=== PATIENT | female | born 1970 | race Asian ===

== ENCOUNTER 2021-02-04 14:58 | Emergency (ER) | payer BC, MEDICAID ==
[~2021-02-04] VITALS: Ht 157.5 cm; Wt 74.8 kg
[~2021-02-04 14:58] MED LIST: HYDR12.55 PO; LOSA50TA3 PO
--- NOTE | 2021-02-04 15:22 | NUR ---
PT AMBULATORY TO ER BED 01 C/O LIGHTHEADEDNESS, NAUSEA THAT STARTED 4 HOURS AGO. PT ALSO C/O ABDOMINAL CRAMPING AND IS CONSTIPATED FOR A WHILE NOW. DENIES CHEST PAIN. STABLE VITALS. AWAITING MD HENLEY.
--- NOTE | 2021-02-04 15:33 | NUR ---
DR FREY AT BEDSIDE FOR EVAL.
--- NOTE | 2021-02-04 15:40 | NUR ---
IV LINE STARTED BLOOD DRAWN AND SENT TO LAB.
[2021-02-04] MEDS ORDERED: ONDANSETRON HCL/PF 4 MG/2 ML VIAL ONE (15:44)
[2021-02-04 15:45] LABS: BASOPHILS # (AUTO) 0.1 /CMM (0.0-0.2); EOSINOPHILS % (AUTO) 4.8 % (0.0-6.0); HEMATOCRIT 39 % (33-45); HEMOGLOBIN 12.9 g/dL (11.5-14.8); LYMPHOCYTES # (AUTO) 1.8 /CMM (0.8-4.8); LYMPHOCYTES % (AUTO) 16.3 % (20.0-44.0); MEAN CORPUSCULAR HGB CONC 33 g/dl (31.0-36.0); MEAN CORPUSCULAR VOLUME 80 fL (82-100); MONOCYTES # (AUTO) 0.8 /CMM (0.1-1.30); MONOCYTES % (AUTO) 7.7 % (2.0-12.0); NEUTROPHILS # (AUTO) 7.7 /CMM (1.8-8.9); NEUTROPHILS % (AUTO) 70.2 % (43.0-81.0); PLATELET COUNT (AUTO) 308 /CMM (150-450); RED BLOOD CELL COUNT(AUTO) 4.89 MIL/uL (4.0-5.2); WHITE BLOOD COUNT (AUTO) 10.9 K/uL (4.3-11.0)
[2021-02-04 15:57] LABS: BILIRUBIN,URINE Negative (NEGATIVE); COLOR,URINE YELLOW (YELLOW); LEUKOCYTE ESTERASE ,URINE Negative (NEGATIVE); NITRITE, URINE Negative (NEGATIVE); PROTEIN,URINE Negative (NEGATIVE); UGLUCOSE Negative (NEGATIVE); UROBILINOGEN,URINE 0.2 EU/dL (0.2)
[2021-02-04] MEDS ORDERED: ONDANSETRON HCL/PF 4 MG/2 ML VIAL IV ONE (16:00)
[2021-02-04] MEDS ORDERED: IV NS 0.9% 1,000 ML BAG IV ONE (16:00)
[2021-02-04 16:16] LABS: ALANINE AMINOTRANSFERASE 25 U/L (12-78); ALBUMIN 4.1 g/dL (3.4-5.0); ALKALINE PHOSPHATASE 57 U/L (46-116); ASPARTATE AMINOTRANSFERASE 14 U/L (15-37); BILIRUBIN,DIRECT 0.1 mg/dL (0.0-0.2); BILIRUBIN,TOTAL 0.2 mg/dL (0.2-1.0); CARBON DIOXIDE 28 mmol/L (21-32); CHLORIDE 99 mmol/L (98-107); CREATININE 0.9 mg/dL (0.6-1.3); GLUCOSE 108 mg/dL (74-106); POTASSIUM 4.3 mmol/L (3.5-5.1); SODIUM SERUM 136 mmol/L (136-145); TOTAL PROTEIN, SERUM 8.1 g/dL (6.4-8.2); UREA NITROGEN, BLOOD 9 mg/dL (7-18)
[2021-02-04 17:10] LABS: CALCIUM, SERUM 10.3 mg/dL (8.5-10.1)
--- NOTE | 2021-02-04 17:13 | NUR ---
Patient discharged to home in stable condition. Written and verbal after care instructions given. Patient verbalizes understanding of instruction.IV removed. Catheter intact and site benign. Pressure and 4x4 applied to site. No bleeding noted.
[2021-02-04 17:14] VITALS: BP 144/80
== END 2021-02-04 17:14 | disposition home or self-care (01) ==
LOC: ER 15:05
DX: R42 Dizziness and giddiness (principal); K59.00 Constipation, unspecified; I10 Essential (primary) hypertension; K21.9 Gastro-esophageal reflux disease without esophagitis; F32.9 Major depressive disorder, single episode, unspecified; D64.9 Anemia, unspecified; Z90.89 Acquired absence of other organs; Z88.8 Allergy status to other drugs, medicaments and biological substances; Z79.899 Other long term (current) drug therapy
CPT/HCPCS: 36415; 80048; 80076; 81003; 84484; 84703; 85025; 93005; 96361; 96374; 99284; J2405; J7030

== ENCOUNTER → 2024-12-15 | Emergency (ER) | payer BC, MEDICAID ==
[~2024-12-15] VITALS: Ht 157.5 cm; Wt 75.7 kg
[2024-12-15 17:57] VITALS: BP 159/97; TEMP 98.2; O2SAT 97
== END | disposition left against medical advice (07) ==
LOC: ER 17:50
DX: R51.9 Headache, unspecified (principal); R42 Dizziness and giddiness; R11.0 Nausea; Z53.21 Procedure and treatment not carried out due to patient leaving prior to being seen by health care provider

== ENCOUNTER 2025-06-19 08:12 | Emergency (ER) | payer BC, MEDICAID ==
[~2025-06-19] VITALS: Ht 157.5 cm; Wt 72.6 kg
[2025-06-19 09:25] LABS: PLATELET COUNT (AUTO) 266 K/uL (150-450); RED BLOOD CELL COUNT(AUTO) 5.10 MIL/uL (4.0-5.2); RED CELL DISTRIBUTION WIDTH 14.8 % (11.5-15.0); WHITE BLOOD COUNT (AUTO) 5.9 K/uL (4.3-11.0)
[2025-06-19 09:36] LABS: CALCIUM, SERUM 9.2 mg/dL (8.5-10.1); CREATININE 0.7 mg/dL (0.6-1.3); SODIUM SERUM 140.0 mmol/L (136-145); UREA NITROGEN, BLOOD 12.0 mg/dL (7-18)
[2025-06-19 09:39] LABS: INR 0.95 (0.91-1.10)
[2025-06-19 09:42] LABS: ASPARTATE AMINOTRANSFERASE 15.0 U/L (15-37); TOTAL PROTEIN, SERUM 7.7 g/dL (6.4-8.2)
[2025-06-19] MEDS ORDERED: ONDANSETRON HCL/PF 4 MG/2 ML VIAL ONE (09:49)
[2025-06-19] MEDS ORDERED: MECLIZINE HCL 25 MG TABLET ONE (09:50)
[2025-06-19] MEDS: MECLIZINE HCL 25 MG TABLET PO ONE (09:52)
[2025-06-19] MEDS: ONDANSETRON HCL/PF 4 MG/2 ML VIAL IVP ONE (09:53)
[2025-06-19] MEDS ORDERED: IOHEXOL-350 100 ML VIAL IV ONE (10:46)
[2025-06-19] MEDS ORDERED: IV NS 0.9% 250 ML IV ONE (10:46)
[2025-06-19] MEDS ORDERED: CT SWABBABLE VALVE TRANS SET 1 EA INFUS.SET MC ONE (10:46)
[2025-06-19 10:56] LABS: APPEARANCE,URINE CLOUDY (CLEAR); BLOOD, URINE NEGATIVE Ery/uL (NEGATIVE); LEUKOCYTE ESTERASE ,URINE NEGATIVE (NEGATIVE); NITRITE, URINE NEGATIVE (NEGATIVE); UGLUCOSE NEGATIVE (NEGATIVE)
[2025-06-19 11:01] LABS: ADD URINE CULTURE YES; SQUAMOUS EPITHELIAL CELL,UR Few /HPF (None Seen); URINE AMORPHOUS PHOSPHATES Many /HPF (None Seen)
[2025-06-19] MEDS: POTASSIUM CHLORIDE 20 MEQ TAB.PRT.SR PO ONE (11:05)
[2025-06-19] MEDS ORDERED: POTASSIUM CHLORIDE 20 MEQ TAB.PRT.SR PO ONE (11:05)
[2025-06-19] MEDS ORDERED: ONDA4TAB5 PO (12:18)
[2025-06-19] MEDS ORDERED: MECL-159 PO (12:18)
[2025-06-19 13:21] VITALS: BP 131/83; TEMP 98.2; O2SAT 95
== END 2025-06-19 13:22 | disposition home or self-care (01) ==
LOC: ER 08:20
DX: R42 Dizziness and giddiness (principal); R20.0 Anesthesia of skin; R11.0 Nausea; R51.9 Headache, unspecified; R06.00 Dyspnea, unspecified; E11.9 Type 2 diabetes mellitus without complications; E87.6 Hypokalemia; K21.9 Gastro-esophageal reflux disease without esophagitis; F32.A Depression, unspecified; I10 Essential (primary) hypertension; Z79.899 Other long term (current) drug therapy; Z90.49 Acquired absence of other specified parts of digestive tract; Z88.8 Allergy status to other drugs, medicaments and biological substances
CPT/HCPCS: 99285; 70498; 96374; 71045; 93005; 70496; 85025; 80048; 87086; 80076; 81001; 36415; 85730; 82962; 70450; J8597; J2405; J7050; Q9967

== ENCOUNTER 2025-09-29 13:43 | Emergency (ER) | payer BC, MEDICAID ==
[~2025-09-29] VITALS: Ht 157.5 cm; Wt 74.8 kg
[~2025-09-29 13:43] MED LIST changes: +MECL-159 PO; +ONDA4TAB5 PO
[2025-09-29] MEDS ORDERED: TDAP [DIPH/PERTUSSIS/TET] 0.5 ML VIAL IM ONE (14:04)
[2025-09-29] MEDS ORDERED: AMOX-430 PO (14:05)
[2025-09-29] MEDS ORDERED: BACI/NEOM/POLY B OINT PKT 1 UDPKT PACKET ONE (14:05)
[2025-09-29] MEDS ORDERED: DOXY-226 PO (14:06)
[2025-09-29] MEDS: MUPIROCIN OINT 2% 22 GM TUBE TP ONE (14:13)
[2025-09-29] MEDS: TDAP [DIPH/PERTUSSIS/TET] 0.5 ML VIAL IM ONE (14:16)
[2025-09-29] MEDS: AMOX/CLAVULANATE 875 MG TABLET PO ONE (14:20)
[2025-09-29] MEDS ORDERED: AMOX/CLAVULANATE 875 MG TABLET ONE (14:20)
[2025-09-29] MEDS ORDERED: RABIES VACCINE (PCEC)/PF 1 EA KIT IM ONE (14:43)
[2025-09-29] MEDS: RABIES VACCINE (PCEC)/PF 1 EA KIT IM ONE (14:58)
[2025-09-29] MEDS ORDERED: MAG HYDROX/AL HYDROX/SIMETH 30 ML UDC ONE (15:00)
[2025-09-29] MEDS: MAG HYDROX/AL HYDROX/SIMETH 30 ML UDC PO ONE (15:03)
[2025-09-29 15:43] LABS: PLATELET COUNT (AUTO) 247 K/uL (150-450); RED BLOOD CELL COUNT(AUTO) 4.88 MIL/uL (4.0-5.2); RED CELL DISTRIBUTION WIDTH 14.9 % (11.5-15.0); WHITE BLOOD COUNT (AUTO) 13.4 K/uL (4.3-11.0)
[2025-09-29 16:02] LABS: ASPARTATE AMINOTRANSFERASE 12 U/L (15-37); CALCIUM, SERUM 8.9 mg/dL (8.5-10.1); CREATININE 1.0 mg/dL (0.6-1.3); SODIUM SERUM 139 mmol/L (136-145); TOTAL PROTEIN, SERUM 7.1 g/dL (6.4-8.2); UREA NITROGEN, BLOOD 13 mg/dL (7-18)
[2025-09-29 16:59] VITALS: BP 143/75; TEMP 98.3; O2SAT 96
== END 2025-09-29 17:00 | disposition home or self-care (01) ==
LOC: ER 13:49
DX: S61.051A Open bite of right thumb without damage to nail, initial encounter (principal); I10 Essential (primary) hypertension; K21.9 Gastro-esophageal reflux disease without esophagitis; F32.A Depression, unspecified; Z79.899 Other long term (current) drug therapy; Z90.49 Acquired absence of other specified parts of digestive tract; W54.0XXA Bitten by dog, initial encounter; Y93.89 Activity, other specified; Y92.89 Other specified places as the place of occurrence of the external cause; Y99.8 Other external cause status
CPT/HCPCS: 36415; 73130-TC; 80048-TC; 80076-TC; 83690-TC; 84484-TC; 85025-TC; 90715